=== PATIENT | female | born 1975 | race American Indian/Alaskan Native ===

== ENCOUNTER 2019-12-07 14:04 | Emergency (ER) | payer SELFPAY ==
[2019-12-07] MEDS ORDERED: HYDROcodone/ACETAMINOPHEN 10-325MG TAB PO ONE (14:09)
--- NOTE | 2019-12-07 14:09 | Emergency Department Report ---
<TIFFANY GOMEZ - Last Filed: 12/07/19 15:08> ED Lower Extremity HPI - General Stated Complaint: RT ANKLE POSS BROKEN/PAIN Time Seen by Provider: 12/07/19 14:05 - History of Present Illness Initial Comments: This is a 44-year-old female nontoxic, well nourished in appearance, no acute signs of distress presents to the ED with c/o of right ankle pain x1 day. Patient stated had today while running and twisted ankle. Patient denies any other trauma or injuries. Agrees to some decreased ROM with joint swelling and abnormal gait due to pain. Denies any fever, chills, nausea, vomiting, headache, stiff neck, chest pain or shortness of breath. Patient denies any numbness or tingling. Denies any allergies. MD Complaint: ankle injury -: days(s) Injury: Ankle: Right Severity: mild Severity scale (0 -10): 8 Improves With: immobilization Worsens With: weight bearing, movement, palpation Associated Symptoms: swelling, unable to bear weight. denies: snap/pop sensation, numbness, tingling - Related Data Previous Rx's Medication Instructions Recorded Last Taken Type Naproxen 500 mg PO Q12H PRN #12 tablet 12/07/19 Unknown Rx Allergies Allergy/AdvReac Type Severity Reaction Status Date / Time No Known Allergies Allergy Unverified 12/07/19 14:07 ED Review of Systems Constitutional: denies: chills, fever Eyes: denies: eye pain, eye discharge, vision change ENT: denies: ear pain, throat pain Respiratory: denies: cough, shortness of breath, wheezing Cardiovascular: denies: chest pain, palpitations Endocrine: no symptoms reported Gastrointestinal: denies: abdominal pain, nausea, diarrhea Genitourinary: denies: urgency, dysuria, discharge Musculoskeletal: denies: back pain, joint swelling, arthralgia Skin: denies: rash, lesions Neurological: denies: headache, weakness, paresthesias Psychiatric: denies: anxiety, depression Hematological/Lymphatic: denies: easy bleeding, easy bruising ED Past Medical Hx - Medications Home Medications: Home Medications Medication Instructions Recorded Confirmed Last Taken Type Naproxen 500 mg PO Q12H PRN #12 tablet 12/07/19 Unknown Rx ED Physical Exam - General General appearance: alert, in no apparent distress - Head Head exam: Present: atraumatic, normocephalic - Eye Eye exam: Present: normal appearance - Neck Neck exam: Present: normal inspection, full ROM. Absent: tenderness, meningismus, lymphadenopathy - Respiratory Respiratory exam: Absent: respiratory distress - Cardiovascular Cardiovascular Exam: Present: regular rate - Extremities Exam Extremities exam: Present: full ROM, tenderness, normal capillary refill, joint swelling. Absent: calf tenderness - Expanded Lower Extremity Exam Right Hip exam: Present: normal inspection, full ROM. Absent: tenderness, swelling Upper Leg exam: Present: normal inspection, full ROM. Absent: tenderness, swelling Knee exam: Present: normal inspection, full ROM. Absent: tenderness, swelling Lower Leg exam: Present: normal inspection, full ROM. Absent: tenderness, swelling, abrasion, laceration, ecchymosis, deformity, crepidus, dislocation, erythema, palpable cord, Luis Carlos's sign Ankle exam: Present: full ROM, tenderness, swelling, ecchymosis. Absent: abrasion, laceration, deformity, crepidus, dislocation, erythema, anterior draw sign Foot/Toe exam: Present: normal inspection, full ROM. Absent: tenderness, swelling, abrasion, laceration, ecchymosis, deformity, crepidus, dislocation, erythema, amputation, puncture wound, foreign body, calcaneal tenderness, tenderness at base of 5th metatarsal, nail avulsion, subungual hematoma Neuro vascular tendon exam: Present: no vascular compromise Gait: Positive: unable to bear weight - Back Exam Back exam: Present: normal inspection, full ROM. Absent: tenderness, CVA tenderness (R), CVA tenderness (L), muscle spasm, paraspinal tenderness, vertebral tenderness, rash noted - Neurological Exam Neurological exam: Present: alert, oriented X3 - Psychiatric Psychiatric exam: Present: normal affect, normal mood - Skin Skin exam: Present: warm, dry, intact, normal color. Absent: rash ED Course - Reevaluation(s) Reevaluation #1: 12/07/19 14:09 Patient is speaking in full sentences with no signs of distress noted. ED Lower Extremity MDM - Radiology Data Referring Physician: TIFFANY GOMEZ Patient Name: MAUREEN WORLEY Date of : 1975 Sex: Female Report Date: 2019-12-07 Report Status: Finalized [facility] [address] [place] [address] XRay Report Signed Patient: MAUREEN WORLEY MR#: [id number] : 1975 Acct:[id number] Age/Sex: 44 / F ADM Date: 12/07/19 Loc: ED Attending Dr: Ordering Physician: TIFFANY GOMEZ NP Date of Service: 12/07/19 Procedure(s): XR ankle 3+V RT Accession Number(s): [id number] cc: TIFFANY GOMEZ NP Fluoro Time In Minutes: Right ankle 3 views INDICATION: Right ankle pain following injury Findings: Obliquely oriented fracture through the distal right fibular metaphysis with a significantly displaced fracture involving the medial malleolus. There is also fracture involving the posterior aspect of the tibial plafond. Mild subluxation of the tibia with respect to the talar head. IMPRESSION: Severe fracture dislocation of the ankle (trimalleolar) Signer Name: Gary Worthington MD Signed: 12/07/2019 2:28 PM Workstation Name: [id number] Transcribed By: Dictated By: Gary Worthington MD Electronically Authenticated By: Gary Worthington MD Signed Date/Time: 12/07/191427 DD/ 26 TD/TT: v - Medical Decision Making 44-year-old female that presents with ankle fracture. Pt is stable and was examined by me. Pt is notified of the xray resullts with no quesitons noted by the patient. [place] OCL splint applied. Post splint: neurovascular intact, normal cap refill <2 seconds, denies being too tight. Patient received Crutches as well. Stated family member will drive the patient home after discharge due to possible drowsiness of [place]. Patient was instructed to Follow-up with a orthopedic doctor in 3-5 days or if symptoms worsen and continue return to emergency room as soon as possible. At time of discharge, the patient does not seem toxic or ill in appearance. No acute signs of distress noted. Patient agrees to discharge treatment plan of care. No further questions noted by the patient. ED Disposition Clinical Impression: Closed right ankle fracture Qualifiers: Encounter type: initial encounter Qualified Code(s): S82.891A - Other fracture of right lower leg, initial encounter for closed fracture Disposition: DC-01 TO HOME OR SELFCARE Is pt being admited?: No Does the pt Need Aspirin: No Condition: Stable Instructions: Ankle Fracture (ED), Crutch Instructions (ED), Splint Care (ED), RICE Therapy (ED) Additional Instructions: Follow-up with a orthopedic doctor in 3-5 days or if symptoms worsen and continue return to emergency room as soon as possible. No physical activity until cleared by orthopedic. Prescriptions: Naproxen 500 mg PO Q12H PRN #12 tablet PRN Reason: Pain , Severe (7-10) Referrals: KENNEDY ELLER MD [Other] - 3-5 Days PRIMARY CAREMD [Referring] - 3-5 Days BOWEN STACK MD [Staff Physician] - 3-5 Days Forms: Work/School Release Form(ED) <SLOANE OZUNA S - Last Filed: 12/08/19 16:08> ED Review of Systems ROS: Stated complaint: RT ANKLE POSS BROKEN/PAIN Other details as noted in HPI ED Course Vital Signs 12/07/19 12/07/19 14:08 14:27 Temperature 98.2 F Pulse Rate 76 Respiratory 18 18 Rate Blood Pressure 149/81 O2 Sat by Pulse 97 Oximetry ED Lower Extremity MDM - Medical Decision Making This patient was evaluated and dispositioned by the advanced practitioner. I was available for consultation but was not approached or presented this patient. Critical care attestation.: If time is entered above; I have spent that time in minutes in the direct care of this critically ill patient, excluding procedure time. ED Disposition Is pt being admited?: No
[2019-12-07 14:10] VITALS: BP 149/81
--- NOTE | 2019-12-07 14:33 | XRay Report ---
Right ankle 3 views INDICATION: Right ankle pain following injury Findings: Obliquely oriented fracture through the distal right fibular metaphysis with a significantl y displaced fracture involving the medial malleolus. There is also fracture involving the posterior a spect of the tibial plafond. Mild subluxation of the tibia with respect to the talar head. IMPRESSION: Severe fracture dislocation of the ankle (trimalleolar) Signer Name: Gary Worthington MD Signed: 12/07/2019 2:28 PM Workstation Name: [id number]
== END 2019-12-07 15:43 | disposition home or self-care (01) ==
LOC: ED 14:04
DX: S82.891A Other fracture of right lower leg, initial encounter for closed fracture (principal); X58.XXXA Exposure to other specified factors, initial encounter; Y93.89 Activity, other specified; Y92.89 Other specified places as the place of occurrence of the external cause; Y99.8 Other external cause status